=== PATIENT | female | born 1990 | race Caucasian/White ===

== ENCOUNTER 2019-09-09 15:53 | Emergency (ER) | payer MEDICAID ==
[2019-09-09 16:19] VITALS: BP 149/82; PULSE 114
--- NOTE | 2019-09-09 18:07 | EDM.PDOC ---
ED HPI GENERAL MEDICAL PROBLEM - General Chief Complaint: Gastrointestinal Problem Stated Complaint: COLD DEHYDRATED Time Seen by Provider: 09/09/19 18:00 Source of Information: Reports: Patient History Limitations: Reports: No Limitations - History of Present Illness INITIAL COMMENTS - FREE TEXT/NARRATIVE: 29-year-old female in with nausea vomiting and diarrhea for the past week and a half. She feels chilled at time, thought she was running fever last week. She is actually improving, only vomited once today and the diarrhea is slowing down but she called a phone nurse today and they told her to come in to make sure she was not "dehydrated". She is not having any pain. No dysuria. Vitals are stable and normal. No blood in the emesis or diarrhea, she has not recently been on an antibiotic. Her mother and kids both have flu symptoms that are similar. Onset: Gradual Duration: Day(s): (10 days) Associated Symptoms: Reports: Fever/Chills, Malaise - Related Data Allergies Allergy/AdvReac Type Severity Reaction Status Date / Time iodine Allergy Severe Airway Verified 03/01/15 08:22 Tightness diphenhydramine Allergy Unknown Cannot Verified 03/01/15 08:22 Remember latex Allergy Unknown Cannot Verified 03/01/15 08:22 Remember shellfish derived Allergy Unknown Cannot Verified 03/01/15 08:22 Remember tramadol Allergy Unknown Cannot Verified 03/01/15 08:22 Remember Home Meds: Home Meds Albuterol [Ventolin HFA] 2 puff IH ASDIRECTED 06/11/16 [History] Folic Acid 1 mg PO DAILY 09/09/19 [History] Omeprazole 20 mg PO ASDIRECTED 09/09/19 [History] QUEtiapine Fumarate [Quetiapine Fumarate] 25 mg PO TID PRN 09/09/19 [History] QUEtiapine Fumarate [Quetiapine Fumarate] 50 mg PO BEDTIME 09/09/19 [History] cloNIDine [Catapres] 0.1 mg PO BEDTIME 09/09/19 [History] Past Medical History Cardiovascular History: Reports: Heart Murmur Respiratory History: Reports: Asthma Gastrointestinal History: Reports: Colon Polyp, Fatty Liver, Hemorrhoids Genitourinary History: Reports: UTI, Recurrent 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: , 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 Musculoskeletal History: Reports: Back Pain, Chronic, Fracture Neurological History: Reports: Concussion, Headaches, Chronic, Head Trauma Psychiatric History: Reports: Addiction, Depression Endocrine/Metabolic History: Reports: Other (See Below) Other Endocrine/Metabolic History: Gestational diabetes Hematologic History: Reports: Blood Transfusion(s) Other Oncologic History: per pt.-diagnosed "couple of years ago"- has had no follow up "stopped going to the doctor" Other Dermatologic History: multiple scabbed areas throughout body - Infectious Disease History Other Infectious Disease History: States she was told a couple years ago she has hepatitis but is unsure of what type. - Past Surgical History Respiratory Surgical History: Reports: None GI Surgical History: Reports: Cholecystectomy Female Surgical History: Reports: Section Musculoskeletal Surgical History: Reports: Carpal Tunnel Social & Family History - Family History Family Medical History: Noncontributory - Tobacco Use Smoking Status *Q: Heavy Tobacco Smoker Years of Tobacco use: 18 Packs/Tins Daily: 1 - Caffeine Use Caffeine Use: Reports: Coffee - Recreational Drug Use Recreational Drug Use: Yes Recreational Drug Type: Reports: Marijuana/Hashish, Methamphetamine Recreational Drug Use Frequency: Rarely ED ROS GENERAL - Review of Systems Review Of Systems: See Below Constitutional: Reports: Chills, Malaise. Denies: Fever Respiratory: Denies: Shortness of Breath, Cough GI/Abdominal: Reports: Diarrhea, Nausea, Vomiting. Denies: Abdominal Pain ED EXAM, GENERAL - Physical Exam Exam: See Below Exam Limited By: No Limitations General Appearance: Alert, No Apparent Distress Eye Exam: Bilateral Eye: Normal Inspection (No jaundice, good hydration) Respiratory/Chest: No Respiratory Distress, Lungs Clear Cardiovascular: Regular Rate, Rhythm, Tachycardia (Just mild tachycardia) GI/Abdominal: Normal Bowel Sounds, Soft Neurological: Alert, Oriented Course - Vital Signs Last Recorded V/S: Last Vital Signs Temp 97.7 F 09/09/19 16:24 Pulse 114 H 09/09/19 16:24 Resp 18 09/09/19 16:24 BP 149/82 H 09/09/19 16:24 Pulse Ox 96 09/09/19 16:24 - Re-Assessments/Exams Free Text/Narrative Re-Assessment/Exam: 09/09/19 18:06 Patient likely has a lingering viral gastroenteritis, she was given 5 doses of Zofran to use over the next 24 to 40 hours and can return if worsening. Departure - Departure Time of Disposition: 18:16 Disposition: Home, Self-Care 01 Clinical Impression: Viral gastroenteritis - Discharge Information Instructions: Viral Gastroenteritis, Adult, [id number] Referrals: PCP,None [Primary Care Provider] - Forms: ED Department Discharge Care Plan Goals: Use Zofran every 6-8 hours for nausea and increase diet slowly concentrating on fluids. Recheck in 1 to 2 days if not improving satisfactorily, return anytime if worsening. Sepsis Event Note - Evaluation Sepsis Screening Result: No Definite Risk - Focused Exam Vital Signs: Vital Signs Temp Pulse Resp BP Pulse Ox 09/09/19 16:24 97.7 F 114 H 18 149/82 H 96 09/09/19 16:13 97.7 F 114 H 18 149/82 H 96 Date Exam was Performed: 09/09/19 Time Exam was Performed: 20:28
== END 2019-09-09 18:18 | disposition home or self-care (01) ==
LOC: JP.ED 15:53
DX: A08.4 Viral intestinal infection, unspecified (principal); F17.210 Nicotine dependence, cigarettes, uncomplicated; Z79.899 Other long term (current) drug therapy; Z88.6 Allergy status to analgesic agent
CPT/HCPCS: 99283

== ENCOUNTER 2019-12-09 19:39 | Emergency (ER) | payer MEDICAID ==
[2019-12-09 19:58] VITALS: BP 138/79; PULSE 131
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
[2019-12-12 23:10] LABS: CHLAMYDIA TRACHOMATIS, NAA Negative (Negative); NEISSERIA GONORRHOEAE, NAA Negative (Negative)
== END 2019-12-09 20:53 | disposition home or self-care (01) ==
LOC: JP.ED 19:39
DX: T74.21XA Adult sexual abuse, confirmed, initial encounter (principal); F19.10 Other psychoactive substance abuse, uncomplicated; F17.210 Nicotine dependence, cigarettes, uncomplicated; J45.909 Unspecified asthma, uncomplicated; F32.9 Major depressive disorder, single episode, unspecified; Z79.899 Other long term (current) drug therapy; Z91.013 Allergy to seafood; Z88.6 Allergy status to analgesic agent; Z91.040 Latex allergy status; Z91.09 Other allergy status, other than to drugs and biological substances; Z88.8 Allergy status to other drugs, medicaments and biological substances
CPT/HCPCS: 80305-QW; 81001; 81025; 87491; 87591; 99284

== ENCOUNTER 2019-12-15 21:06 | Emergency (ER) | payer MEDICAID ==
[2019-12-15 21:25] VITALS: BP 132/85; PULSE 133
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
== END 2019-12-15 23:11 | disposition home or self-care (01) ==
LOC: JP.ED 21:06
DX: N93.9 Abnormal uterine and vaginal bleeding, unspecified (principal); J45.909 Unspecified asthma, uncomplicated; F41.9 Anxiety disorder, unspecified; F32.9 Major depressive disorder, single episode, unspecified; F17.210 Nicotine dependence, cigarettes, uncomplicated; Z91.09 Other allergy status, other than to drugs and biological substances; Z91.040 Latex allergy status; Z88.5 Allergy status to narcotic agent; Z91.013 Allergy to seafood
CPT/HCPCS: 36415; 80048; 81001; 81025; 85027; 85610; 99284

== ENCOUNTER 2021-11-26 16:50 | Emergency (ER) | payer MEDICAID ==
[2021-11-26] MEDS ORDERED: fentaNYL 100 MCG/2 ML SDV IVPUSH ONE (17:34)
[2021-11-26] MEDS ORDERED: Sodium Chloride 0.9% 10 ML Syringe FLUSH PRN (17:34)
[2021-11-26] MEDS ORDERED: Ondansetron 4 MG/2 ML SDV IVPUSH ONE (17:34)
[2021-11-26] MEDS ORDERED: Sodium Chloride 0.9% 1,000 ML IV SCH (17:45)
[2021-11-26 17:56] VITALS: PULSE 85
[2021-11-26] MEDS ORDERED: HYDROmorphone 1 MG/ML Syringe IVPUSH ONE (18:24)
[2021-11-26 19:45] VITALS: BP 121/67
== END 2021-11-26 21:17 | disposition home or self-care (01) ==
LOC: JP.ED 16:50
DX: S06.0X0A Concussion without loss of consciousness, initial encounter (principal); S02.2XXA Fracture of nasal bones, initial encounter for closed fracture; S01.81XA Laceration without foreign body of other part of head, initial encounter; S20.219A Contusion of unspecified front wall of thorax, initial encounter; S40.021A Contusion of right upper arm, initial encounter; S40.012A Contusion of left shoulder, initial encounter; Z91.040 Latex allergy status; Z91.041 Radiographic dye allergy status; Z91.013 Allergy to seafood; Z88.5 Allergy status to narcotic agent; Z72.0 Tobacco use; Y04.0XXA Assault by unarmed brawl or fight, initial encounter
CPT/HCPCS: 12001; 12011; 70450; 70486; 71250; 73030-26-LT; 73030-LT; 73060-26-RT; 73060-RT; 74176; 96374; 96375; 99284; 99285-25; J1170; J2405; J3010; J7030

== ENCOUNTER 2022-02-01 13:49 | Emergency (ER) | payer MEDICAID ==
[2022-02-01] MEDS ORDERED: Sodium Chloride 0.9% 10 ML Syringe FLUSH PRN (14:06)
[2022-02-01] MEDS ORDERED: Midazolam 1 MG/ML 2 ML SDV NAS ONE (14:14)
[2022-02-01] MEDS ORDERED: Lactated Ringers 1,000 ML IV SCH (14:15)
[2022-02-01] MEDS ORDERED: LORazepam 2 MG/ML SDV IVPUSH ONE (15:09)
[2022-02-01 15:22] VITALS: BP 115/68; PULSE 98
[2022-02-01 16:16] LABS: TROPONIN I HIGH SENSITIVITY 5.5 pg/mL (<=60.3)
[2022-02-01] MEDS ORDERED: Sulfamethoxazole/Trimethoprim 800-160 MG Tab PO ONE (17:37)
== END 2022-02-01 17:51 ==
LOC: JP.ED 13:49
DX: N30.00 Acute cystitis without hematuria (principal); Z91.040 Latex allergy status; Z91.013 Allergy to seafood; Z91.041 Radiographic dye allergy status; Z88.5 Allergy status to narcotic agent; Z86.16 Personal history of COVID-19
CPT/HCPCS: 36415; 74018; 80053; 80305; 81001; 83605; 83690; 84484; 84703; 85025; 87086; 96374; 99284; 99285; A9270; J2060; J3490; J7120

== ENCOUNTER 2022-03-30 13:10 | Emergency (ER) | payer MEDICAID ==
[2022-03-30 13:23] VITALS: BP 138/71; PULSE 100
== END 2022-03-30 14:56 | disposition home or self-care (01) ==
LOC: JP.ED 13:10
DX: O03.9 Complete or unspecified spontaneous abortion without complication (principal); J45.909 Unspecified asthma, uncomplicated; F17.210 Nicotine dependence, cigarettes, uncomplicated; Z91.041 Radiographic dye allergy status; Z88.8 Allergy status to other drugs, medicaments and biological substances; Z91.040 Latex allergy status; Z91.013 Allergy to seafood; Z88.5 Allergy status to narcotic agent; Z79.899 Other long term (current) drug therapy; Z86.16 Personal history of COVID-19; Z90.49 Acquired absence of other specified parts of digestive tract
CPT/HCPCS: 76817; 76817-26; 99281; 99284

== ENCOUNTER 2022-06-10 17:23 | Emergency (ER) | payer MEDICAID ==
[2013-08-04 05:40] VITALS: BP 109/53
== END 2022-06-10 19:00 | disposition home or self-care (01) ==
LOC: JP.ED 17:23
DX: S20.152A Superficial foreign body of breast, left breast, initial encounter (principal); W45.8XXA Other foreign body or object entering through skin, initial encounter
CPT/HCPCS: 99283

== ENCOUNTER 2022-06-19 21:15 | Emergency (ER) | payer MEDICAID ==
[2022-06-19 21:43] VITALS: BP 124/93; PULSE 117
== END 2022-06-19 23:31 | disposition home or self-care (01) ==
LOC: JP.ED 21:15
DX: O20.9 Hemorrhage in early pregnancy, unspecified (principal); Z3A.01 Less than 8 weeks gestation of pregnancy; F17.210 Nicotine dependence, cigarettes, uncomplicated; Z91.041 Radiographic dye allergy status; Z88.8 Allergy status to other drugs, medicaments and biological substances; Z91.040 Latex allergy status; Z91.013 Allergy to seafood; Z88.5 Allergy status to narcotic agent; Z79.899 Other long term (current) drug therapy; Z90.49 Acquired absence of other specified parts of digestive tract
CPT/HCPCS: 36415; 80305-QW; 81001; 84702; 85025; 99283

== ENCOUNTER 2022-11-15 04:04 | Emergency (ER) | payer MEDICAID ==
[2022-11-15 09:15] VITALS: BP 111/73; PULSE 71
== END 2022-11-15 09:16 | disposition home or self-care (01) ==
LOC: JP.ED 04:04
DX: S93.402A Sprain of unspecified ligament of left ankle, initial encounter (principal); J45.909 Unspecified asthma, uncomplicated; Z88.8 Allergy status to other drugs, medicaments and biological substances; Z91.040 Latex allergy status; Z88.5 Allergy status to narcotic agent; Z91.013 Allergy to seafood; W00.0XXA Fall on same level due to ice and snow, initial encounter; X50.1XXA Overexertion from prolonged static or awkward postures, initial encounter
CPT/HCPCS: 36415; 73610-26-LT; 73610-LT; 80307; 99282; 99283

== ENCOUNTER 2023-09-20 09:20 | Emergency (ER) | payer MEDICAID ==
[2023-09-20] MEDS ORDERED: Lactated Ringers 1,000 ML IV ONE ×2 (10:51→12:33)
[2023-09-20] MEDS ORDERED: Sodium Chloride 0.9% 10 ML Syringe FLUSH PRN (10:51)
[2023-09-20] MEDS ORDERED: Ondansetron 4 MG/2 ML SDV IVPUSH ONE (10:58)
[2023-09-20 11:02] LABS: BASOPHILS ABSOLUTE AUTO 0.05 K/uL (0.00-0.10); BASOPHILS PERCENT AUTO 0.4 % (0.1-1.3); EOSINOPHILS ABSOLUTE AUTO 0.17 K/uL (0.00-0.40); EOSINOPHILS PERCENT AUTO 1.2 % (0.0-5.4); HEMATOCRIT 36.5 % (34.3-46.0); HEMOGLOBIN 12.8 g/dL (11.2-15.5); IMMATURE GRAN ABSOLUTE AUTO 0.08 K/uL (0.00-0.23); IMMATURE GRAN PERCENT AUTO 0.6 % (0.0-0.7); LYMPHOCYTES ABSOLUTE AUTO 0.67 K/uL (0.8-3.3); LYMPHOCYTES PERCENT AUTO 4.9 % (11.4-47.7); MEAN CORPUSCULAR HEMOGLOBIN 31.1 pg (31.6-35.5); MEAN CORPUSCULAR HGB CONC 35.1 g/dL (31.6-35.5); MEAN CORPUSCULAR VOLUME 88.8 fL (81.4-99.0); MONOCYTES ABSOLUTE AUTO 0.43 K/uL (0.20-0.90); MONOCYTES PERCENT AUTO 3.2 % (3.3-12.6); NEUTROPHILS ABSOLUTE AUTO 12.21 K/uL (1.0-7.6); NEUTROPHILS PERCENT AUTO 89.7 % (40.0-78.1); PLATELET COUNT,PLT 229 K/uL (130-375); RED BLOOD CELL COUNT 4.11 M/uL (3.77-5.24); WHITE BLOOD CELL COUNT,WBC 13.6 K/uL (3.2-11.0)
[2023-09-20 11:17] LABS: CALCIUM 8.9 mg/dL (8.5-10.1); CREATININE 0.8 mg/dL (0.6-1.0); EST CRCL DRUG DOSING (CG) 78.37 mL/min; POTASSIUM,K 3.8 mmol/L (3.6-5.2)
[2023-09-20 11:22] LABS: ANION GAP 12.8 mmol/L (5.0-14.0)
[2023-09-20 11:39] VITALS: BP 128/66; PULSE 100
[2023-09-20 12:51] LABS: APPEARANCE,URINE TURBID (CLEAR); BILIRUBIN,URINE SMALL (NEGATIVE); COLOR,URINE YELLOW (YELLOW); GLUCOSE,URINE NEGATIVE (NEGATIVE); KETONES,URINE 15 mg/dL (NEGATIVE); LEUKOCYTE ESTERASE,URINE NEGATIVE (NEGATIVE); NITRITE,URINE NEGATIVE (NEGATIVE); OCCULT BLOOD,URINE NEGATIVE (NEGATIVE); PROTEIN,URINE >=300 mg/dL (NEGATIVE); UROBILINOGEN,URINE 0.2 EU/dL (0.2-1.0)
[2023-09-20 13:05] LABS: AMORPHOUS SEDIMENT,URINE MODERATE; BACTERIA,URINE MODERATE; EPITHELIAL CELLS,URINE MANY; MUCUS,URINE NOT SEEN; WBC,URINE 0-5 (0-5)
[2023-09-20] MEDS ORDERED: droPERidol 5 MG/2 ML SDV IVPUSH ONE (13:05)
== END 2023-09-20 14:31 | disposition home or self-care (01) ==
LOC: JP.ED 09:20
DX: K52.9 Noninfective gastroenteritis and colitis, unspecified (principal); J45.909 Unspecified asthma, uncomplicated; F17.210 Nicotine dependence, cigarettes, uncomplicated; Z91.041 Radiographic dye allergy status; Z91.040 Latex allergy status; Z91.013 Allergy to seafood; Z88.5 Allergy status to narcotic agent; Z79.899 Other long term (current) drug therapy; Z86.16 Personal history of COVID-19; Z90.49 Acquired absence of other specified parts of digestive tract
CPT/HCPCS: 36415; 76815; 80048; 81001; 82731; 83605; 84112; 85025; 96361; 96374; 96375; 99284; J1790; J2405; J3490; J7120

== ENCOUNTER 2024-01-21 15:39 | Emergency (ER) | payer MEDICAID ==
[2024-01-21 15:50] VITALS: BP 106/65; PULSE 86
[2024-01-21 17:10] LABS: BASOPHILS PERCENT AUTO 1.3 % (0.1-1.3); EOSINOPHILS ABSOLUTE AUTO 0.42 K/uL (0.00-0.40); EOSINOPHILS PERCENT AUTO 5.3 % (0.0-5.4); HEMATOCRIT 41.4 % (34.3-46.0); HEMOGLOBIN 14.6 g/dL (11.2-15.5); IMMATURE GRAN PERCENT AUTO 0.1 % (0.0-0.7); LYMPHOCYTES ABSOLUTE AUTO 2.33 K/uL (0.8-3.3); LYMPHOCYTES PERCENT AUTO 29.3 % (11.4-47.7); MEAN CORPUSCULAR HEMOGLOBIN 29.3 pg (31.6-35.5); MEAN CORPUSCULAR HGB CONC 35.3 g/dL (31.6-35.5); MONOCYTES ABSOLUTE AUTO 0.36 K/uL (0.20-0.90); MONOCYTES PERCENT AUTO 4.5 % (3.3-12.6); NEUTROPHILS ABSOLUTE AUTO 4.74 K/uL (1.0-7.6); NEUTROPHILS PERCENT AUTO 59.5 % (40.0-78.1); PLATELET COUNT,PLT 252 K/uL (130-375); RED BLOOD CELL COUNT 4.99 M/uL (3.77-5.24)
[2024-01-21 17:11] LABS: IMMATURE GRAN ABSOLUTE AUTO 0.01 K/uL (0.00-0.23)
[2024-01-21 17:21] LABS: ANION GAP 12.7 mmol/L (5.0-14.0); CALCIUM 9.4 mg/dL (8.5-10.1); CREATININE 0.9 mg/dL (0.6-1.0); EST CRCL DRUG DOSING (CG) 69.66 mL/min; POTASSIUM,K 3.7 mmol/L (3.6-5.2)
== END 2024-01-21 17:49 | disposition home or self-care (01) ==
LOC: JP.ED 15:39
DX: N93.9 Abnormal uterine and vaginal bleeding, unspecified (principal); F17.210 Nicotine dependence, cigarettes, uncomplicated; Z86.16 Personal history of COVID-19; Z90.49 Acquired absence of other specified parts of digestive tract; Z79.899 Other long term (current) drug therapy; Z91.040 Latex allergy status; Z91.041 Radiographic dye allergy status; Z91.013 Allergy to seafood; Z88.8 Allergy status to other drugs, medicaments and biological substances
CPT/HCPCS: 36415; 80048; 85025; 99284

== ENCOUNTER 2024-10-05 16:55 | Emergency (ER) | payer MEDICAID ==
[2024-10-05 17:21] VITALS: BP 134/65; PULSE 77
[2024-10-05] MEDS: Lidocaine 1% with EPINEPHrine 1:100,000 50 ML MDV SUBCUT STA (19:22)
== END 2024-10-05 19:23 | disposition home or self-care (01) ==
LOC: JP.ED 16:55
DX: L02.412 Cutaneous abscess of left axilla (principal); J45.909 Unspecified asthma, uncomplicated; F17.210 Nicotine dependence, cigarettes, uncomplicated; Z86.16 Personal history of COVID-19; Z90.49 Acquired absence of other specified parts of digestive tract; Z88.5 Allergy status to narcotic agent; Z88.8 Allergy status to other drugs, medicaments and biological substances; Z91.040 Latex allergy status; Z91.013 Allergy to seafood; Z91.041 Radiographic dye allergy status; Z79.51 Long term (current) use of inhaled steroids; Z79.82 Long term (current) use of aspirin; Z79.899 Other long term (current) drug therapy
CPT/HCPCS: 10060; 87070; 87077; 87186; 87205; 99283-25

== ENCOUNTER 2024-11-10 20:50 | Emergency (ER) | payer MEDICAID ==
[2024-11-10 21:08] VITALS: BP 112/50; PULSE 76
[2024-11-10] MEDS ORDERED: Sodium Chloride 0.9% 10 ML Syringe FLUSH PRN (21:28)
[2024-11-10 21:46] LABS: BASOPHILS ABSOLUTE AUTO 0.08 K/uL (0.00-0.10); BASOPHILS PERCENT AUTO 0.9 % (0.1-1.3); EOSINOPHILS ABSOLUTE AUTO 0.43 K/uL (0.00-0.40); EOSINOPHILS PERCENT AUTO 4.9 % (0.0-5.4); HEMATOCRIT 38.2 % (34.3-46.0); HEMOGLOBIN 13.5 g/dL (11.2-15.5); IMMATURE GRAN ABSOLUTE AUTO 0.03 K/uL (0.00-0.23); IMMATURE GRAN PERCENT AUTO 0.3 % (0.0-0.7); LYMPHOCYTES ABSOLUTE AUTO 3.36 K/uL (0.8-3.3); MEAN CORPUSCULAR HEMOGLOBIN 31.7 pg (31.6-35.5); MEAN CORPUSCULAR HGB CONC 35.3 g/dL (31.6-35.5); MEAN CORPUSCULAR VOLUME 89.7 fL (81.4-99.0); MONOCYTES ABSOLUTE AUTO 0.52 K/uL (0.20-0.90); MONOCYTES PERCENT AUTO 5.9 % (3.3-12.6); NEUTROPHILS ABSOLUTE AUTO 4.43 K/uL (1.0-7.6); PLATELET COUNT,PLT 227 K/uL (130-375); RED BLOOD CELL COUNT 4.26 M/uL (3.77-5.24); WHITE BLOOD CELL COUNT,WBC 8.9 K/uL (3.2-11.0)
[2024-11-10] MEDS ORDERED: HYDROmorphone 0.5 MG/0.5 ML Syringe IVPUSH ONE (21:54)
[2024-11-10 22:07] LABS: A/G RATIO 1.2 (1.2-2.2); ALANINE AMINOTRANSFERASE,ALT 65 U/L (12-78); ALBUMIN 3.8 g/dL (3.4-5.0); ALKALINE PHOSPHATASE 108 U/L (46-116); ASPARTATE AMNIOTRANSFERASE,AST 20 U/L (15-37); BILIRUBIN TOTAL 0.4 mg/dL (0.2-1.0); BLOOD UREA NITROGEN,BUN 15 mg/dL (7-18); CALCIUM 8.7 mg/dL (8.5-10.1); CARBON DIOXIDE,CO2 27 mmol/L (21-32); CHLORIDE,CL 102 mmol/L (100-108); CREATININE 1.1 mg/dL (0.6-1.0); EST CRCL DRUG DOSING (CG) 56.46 mL/min; ESTIMATED GFR 67 mL/min (>60); GLUCOSE RANDOM 100 mg/dL (74-106); POTASSIUM,K 3.5 mmol/L (3.6-5.2); PROTEIN TOTAL,TP 7.1 g/dL (6.4-8.2); SODIUM,NA 135 mmol/L (140-148)
[2024-11-10 22:13] LABS: ANION GAP 9.5 mmol/L (5.0-14.0); C-REACTIVE PROTEIN < 0.50 mg/dL (<0.50)
[2024-11-10] MEDS: HYDROmorphone 0.5 MG/0.5 ML Syringe IM ONE (22:15)
[2024-11-10 22:24] LABS: APPEARANCE,URINE SLIGHTLY CLOUDY (CLEAR); BILIRUBIN,URINE NEGATIVE (NEGATIVE); COLOR,URINE YELLOW (YELLOW); GLUCOSE,URINE NEGATIVE (NEGATIVE); KETONES,URINE NEGATIVE (NEGATIVE); LEUKOCYTE ESTERASE,URINE NEGATIVE (NEGATIVE); NITRITE,URINE NEGATIVE (NEGATIVE); OCCULT BLOOD,URINE TRACE-INTACT (NEGATIVE); PROTEIN,URINE NEGATIVE (NEGATIVE); UROBILINOGEN,URINE 0.2 EU/dL (0.2-1.0)
[2024-11-10 22:30] LABS: RBC,URINE 0-5 (0-5); WBC,URINE 0-5 (0-5)
[2024-11-10 22:31] LABS: AMORPHOUS SEDIMENT,URINE NOT SEEN; BACTERIA,URINE FEW; EPITHELIAL CELLS,URINE FEW; MUCUS,URINE RARE
== END 2024-11-11 00:34 | disposition home or self-care (01) ==
LOC: JP.ED 20:50
DX: S30.1XXA Contusion of abdominal wall, initial encounter (principal); J45.909 Unspecified asthma, uncomplicated; Z91.041 Radiographic dye allergy status; Z91.040 Latex allergy status; Z91.013 Allergy to seafood; Z88.5 Allergy status to narcotic agent; Z75.1 Person awaiting admission to adequate facility elsewhere; Z79.899 Other long term (current) drug therapy; Z79.82 Long term (current) use of aspirin; Z86.16 Personal history of COVID-19; Z90.49 Acquired absence of other specified parts of digestive tract; X58.XXXA Exposure to other specified factors, initial encounter
CPT/HCPCS: 36415; 74176; 80053; 81001; 85025; 86140; 96372; 99284

== ENCOUNTER 2025-04-06 15:20 | Emergency (ER) | payer MEDICAID ==
[2025-04-06 17:00] VITALS: BP 130/70; PULSE 70
== END 2025-04-06 17:30 | disposition home or self-care (01) ==
LOC: JP.ED 15:20
DX: R55 Syncope and collapse (principal); J45.909 Unspecified asthma, uncomplicated; F17.210 Nicotine dependence, cigarettes, uncomplicated; Z91.041 Radiographic dye allergy status; Z91.040 Latex allergy status; Z88.8 Allergy status to other drugs, medicaments and biological substances; Z91.013 Allergy to seafood; Z88.5 Allergy status to narcotic agent; Z79.51 Long term (current) use of inhaled steroids; Z79.82 Long term (current) use of aspirin
CPT/HCPCS: 99283